=== PATIENT | male | born 1945 | race Caucasian/White ===

== ENCOUNTER 2021-11-14 08:22 | Day surgery (SDC) | payer MEDICARE, MEDICAID ==
[~2021-11-14] VITALS: Ht 165.1 cm; Wt 59.7 kg
[~2021-11-14 08:22] MED LIST: ASPI-41 PO; CARCD120C PO; LOP25T PO
[2021-11-14 08:49] VITALS: BP 146/77
[2021-11-14] MEDS ORDERED: DICL100G30 PO (09:24)
[2021-11-14] MEDS ORDERED: APIX5TAB3 PO (09:24)
[2021-11-14] MEDS ORDERED: DICL50TA8 PO (09:24)
[2021-11-14] MEDS ORDERED: ALBU18HF2 (09:24)
[2021-11-14] MEDS ORDERED: FLO0.4C PO (09:24)
[2021-11-14] MEDS ORDERED: FLEC50TA PO (09:24)
[2021-11-14 10:16] VITALS: BP 123/66
[2021-11-14 10:31] VITALS: BP 136/85
[2021-11-14 10:46] VITALS: BP 146/92
[2021-11-14 11:01] VITALS: BP 149/81
[2021-11-14 12:24] LABS: TOTAL PROTEIN,BODY FLUID 3.7 G/DL
== END 2021-11-14 11:35 | disposition home or self-care (01) ==
LOC: SSTAY O 08:22
PROVIDERS: ATTEND Preventive Medicine Aerospace Medicine
DX: J90 Pleural effusion, not elsewhere classified (principal); J45.909 Unspecified asthma, uncomplicated; N40.0 Benign prostatic hyperplasia without lower urinary tract symptoms; M47.896 Other spondylosis, lumbar region; I10 Essential (primary) hypertension; Z87.01 Personal history of pneumonia (recurrent); Z98.41 Cataract extraction status, right eye; Z98.42 Cataract extraction status, left eye; Z79.01 Long term (current) use of anticoagulants; Z79.899 Other long term (current) drug therapy; Z88.8 Allergy status to other drugs, medicaments and biological substances
CPT/HCPCS: 32555; 83615; 84157; 87070